=== PATIENT | female | born 1950 | race Caucasian/White ===

== ENCOUNTER → 2016-06-06 | Outpatient (CLI) | payer OTHER ==
[2016-03-03 12:45] VITALS: BP 133/71
[~2016-06-06] MED LIST: ALPR0.254 PO; AMLO10TA2 PO; AMOX500C PO; ASPI-482 PO; CANA1TAB4 PO; CARV25TA2 PO; DOCU100C5 PO; DULO60CA6 PO; INSU100V8 SQ; INSU300I SQ; LEVO200T5 PO; LIRA0.6P SQ; LISD70CA3 PO; LISI40TA PO; LORA10TA3 PO; METO10TA PO; OMEP40CA5 PO; OXYC15TA PO; PRAV40TA2 PO; PRED-220 PO; SPIR1TAB3 PO; VIT1TABL34 PO; ZOLP5TAB PO
--- NOTE | 2016-06-06 17:11 | KCIC ---
Bilateral digital screening mammograms with CAD: HISTORY COMPARISON Comparison is made to previous studies dated 06/06/2015 and 03/30/2014. FINDINGS Breast density category B. The skin and nipples show no abnormalities. No abnormal lymph nodes are seen in the axilla. The breast parenchyma shows scattered fibroglandular density. There continues be a small nodular density in the upper outer quadrant of the left breast which has not changed. There are no new dominant masses, suspicious calcifications or architectural distortions. Benign appearing calcifications are present IMPRESSION No evidence of malignancy. Recommend routine annual mammographic screening. This study was interpreted with the benefit of Computerized Aided Detection (CAD). Mammography is not 100% sensitive in detecting breast cancer. Therefore, a self breast exam and a clinical breast exam are very important. A negative mammogram does not negate a clinically suspicious finding and should not result in a delay in biopsying a clinically suspicious abnormality. BI-RADS category 2. Benign. This patient's information has been entered into a reminder system for the patient to be notified with the results of this examination and a target date for her next mammograms. Electronically signed by: Rosmery Lopes MD (Jun 06, 2016 17:10:02)
== END | disposition home or self-care (01) ==
LOC: KCIC MAMMO 15:05
PROVIDERS: ATTEND Family Medicine
DX: Z12.31 Encounter for screening mammogram for malignant neoplasm of breast (principal)
CPT/HCPCS: G0202; 77067

== ENCOUNTER → 2016-07-11 | Outpatient (CLI) | payer OTHER ==
[2016-03-03 12:45] VITALS: BP 133/71
--- NOTE | 2016-07-11 13:05 | RAD ---
Limited bone scan, 07/11/2016: History: Knee pain Images of both knees and lower legs were obtained following IV injection of 25 mCi of technetium 99m MDP. No previous bone scan is available for comparison purposes. The following findings are delineated: 1. A photon deficient area is present at the left knee compatible with the presence of a knee prosthesis. There is increased activity along the margins of the tibial component and to a lesser degree the femoral component of the knee prosthesis. The abnormal activity appears to be greatest at the tip of the tibial component of the prosthesis. This raises the possibility of loosening or infection. Radiographic correlation is suggested. 2. There is moderately increased activity medially at the right knee joint, likely on an arthritic basis. 3. There is moderately increased activity at the right ankle and to a greater degree at the right midfoot level. These findings may be on a traumatic or arthritic basis. Radiographic correlation is suggested. 4. There is minimally increased activity at the left little toe level which may be traumatic or arthritic in nature.
== END | disposition home or self-care (01) ==
LOC: NM 07:07
PROVIDERS: ATTEND Family Medicine
DX: R93.7 Abnormal findings on diagnostic imaging of other parts of musculoskeletal system (principal); I10 Essential (primary) hypertension; Z79.4 Long term (current) use of insulin; Z79.84 Long term (current) use of oral hypoglycemic drugs
CPT/HCPCS: 78300; 96374; A9503

== ENCOUNTER → 2017-01-02 | Outpatient (CLI) | payer OTHER ==
[2016-03-03 12:45] VITALS: BP 133/71
[~2017-01-02] MED LIST changes: +DOCU100C28 PO; -DOCU100C5 PO; -LISD70CA3 PO; +LISD70CA5 PO
--- NOTE | 2017-01-02 16:18 | KCIC ---
2 view study of the left femur HISTORY: Worsening left proximal femur pain. COMPARISON: None available. 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 Alignment is normal. No loosening or radiolucency is evident. Old appearing fracture of the mid pole of the patella is seen with inferior displacement of the inferior fracture fragment. No acute-appearing fracture is evident. No osteolytic process is evident. Generalized osteopenia is seen. Left hip joint is unremarkable. IMPRESSION: No acute osseous abnormality is seen. Electronically signed by: Hiram Cruz MD (01/02/2017 4:15 PM) [id number]
== END | disposition home or self-care (01) ==
LOC: KCIC 15:30
PROVIDERS: ATTEND Family Medicine
DX: M79.652 Pain in left thigh (principal)
CPT/HCPCS: 73552

== ENCOUNTER → 2017-06-18 | Outpatient (CLI) | payer OTHER | END | disposition home or self-care (01) | LOC: KCIC MRI 17:03 | DX: M48.061 Spinal stenosis, lumbar region without neurogenic claudication (principal); M51.36 Other intervertebral disc degeneration, lumbar region | CPT/HCPCS: 72148 ==

== ENCOUNTER → 2017-07-09 | Outpatient (CLI) | payer OTHER | END | disposition home or self-care (01) | LOC: PNCL 14:44 | DX: M50.10 Cervical disc disorder with radiculopathy, unspecified cervical region (principal); M51.16 Intervertebral disc disorders with radiculopathy, lumbar region; M70.61 Trochanteric bursitis, right hip | CPT/HCPCS: G0463 ==

== ENCOUNTER → 2017-07-10 | Outpatient (CLI) | payer OTHER | END | disposition home or self-care (01) | LOC: KCIC MAMMO 14:38 | DX: Z12.31 Encounter for screening mammogram for malignant neoplasm of breast (principal); I10 Essential (primary) hypertension; E11.9 Type 2 diabetes mellitus without complications | CPT/HCPCS: 77063; 77067 ==

== ENCOUNTER → 2017-07-23 | Outpatient (CLI) | payer OTHER ==
[~2017-07-23] MED LIST changes: -ALPR0.254 PO; -AMLO10TA2 PO; -AMOX500C PO; -ASPI-482 PO; +BUPIVACAINE MPF 0.25% 10 ML VIAL.; -CANA1TAB4 PO; -CARV25TA2 PO; -DOCU100C28 PO; -DULO60CA6 PO; -INSU100V8 SQ; -INSU300I SQ; +IOHEXOL 180 MG/ML 10 ML VIAL.; -LEVO200T5 PO; -LIRA0.6P SQ; -LISD70CA5 PO; -LISI40TA PO; -LORA10TA3 PO; -METO10TA PO; -OMEP40CA5 PO; -OXYC15TA PO; -PRAV40TA2 PO; -PRED-220 PO; -SPIR1TAB3 PO; -VIT1TABL34 PO; -ZOLP5TAB PO; +methylPREDNISolone ACETATE 80 MG/ML VIAL.
== END | disposition home or self-care (01) ==
LOC: PNCL 14:27
DX: M51.16 Intervertebral disc disorders with radiculopathy, lumbar region (principal); M96.1 Postlaminectomy syndrome, not elsewhere classified; M70.61 Trochanteric bursitis, right hip; M50.10 Cervical disc disorder with radiculopathy, unspecified cervical region; I10 Essential (primary) hypertension; E11.9 Type 2 diabetes mellitus without complications; F41.9 Anxiety disorder, unspecified; F32.9 Major depressive disorder, single episode, unspecified; J45.909 Unspecified asthma, uncomplicated; Z98.49 Cataract extraction status, unspecified eye; Z98.890 Other specified postprocedural states; Z90.710 Acquired absence of both cervix and uterus
CPT/HCPCS: 64483; J1040; J3490; Q9965

== ENCOUNTER → 2017-08-06 | Outpatient (CLI) | payer OTHER | END | disposition home or self-care (01) | LOC: PNCL 14:47 | DX: M51.16 Intervertebral disc disorders with radiculopathy, lumbar region (principal); M50.30 Other cervical disc degeneration, unspecified cervical region; M96.1 Postlaminectomy syndrome, not elsewhere classified | CPT/HCPCS: 99212 ==

== ENCOUNTER → 2017-08-25 | Outpatient (CLI) | payer OTHER ==
[~2017-08-25] MED LIST changes: -BUPIVACAINE MPF 0.25% 10 ML VIAL.; +LIDOCAINE 1% PF 2 ML VIAL.; +methylPREDNISolone ACETATE 40 MG/ML VIAL.
== END | disposition home or self-care (01) ==
LOC: PNCL 14:45
DX: M51.16 Intervertebral disc disorders with radiculopathy, lumbar region (principal); M96.1 Postlaminectomy syndrome, not elsewhere classified; M50.10 Cervical disc disorder with radiculopathy, unspecified cervical region; I10 Essential (primary) hypertension; J45.909 Unspecified asthma, uncomplicated; Z90.710 Acquired absence of both cervix and uterus; Z98.890 Other specified postprocedural states; E11.9 Type 2 diabetes mellitus without complications; F41.9 Anxiety disorder, unspecified; F32.9 Major depressive disorder, single episode, unspecified; Z98.49 Cataract extraction status, unspecified eye; Z96.1 Presence of intraocular lens
CPT/HCPCS: 62323; J1030; J1040; Q9965

== ENCOUNTER → 2018-07-23 | Outpatient (CLI) | payer OTHER ==
[2016-03-03 12:45] VITALS: BP 133/71
[~2018-07-23] MED LIST changes: +ALPR0.254 PO; +AMLO10TA8 PO; +AMOX500C PO; +ASPI-482 PO; +CANA1TAB4 PO; +CARV25TA2 PO; +DOCU100C28 PO; +DULO60CA6 PO; +INSU100I32 SQ; +INSU100V8 SQ; +INSU300I SQ; -IOHEXOL 180 MG/ML 10 ML VIAL.; +LEVO200T5 PO; -LIDOCAINE 1% PF 2 ML VIAL.; +LIRA0.6P SQ; +LISD70CA5 PO; +LISI-130 PO; +LORA10TA3 PO; +METO10TA PO; +OMEP40CA5 PO; +OXYC15TA PO; +PRAV40TA2 PO; +PRED-220 PO; +SPIR1TAB3 PO; +VIT1TABL34 PO; +ZOLP5TAB PO; +antiviral; -methylPREDNISolone ACETATE 40 MG/ML VIAL.; -methylPREDNISolone ACETATE 80 MG/ML VIAL.
--- NOTE | 2018-07-23 16:32 | KCIC ---
Bilateral digital screening mammograms with 3-D tomosynthesis: Reason for examination: Routine screening. Comparison is made to previous studies dated 07/10/2017 and 06/06/2016. Bilateral mammograms in CC and oblique projections were obtained with 2-D imaging and 3-D tomosynthesis imaging on a Siemens Inspiration unit and reviewed on the workstation. Interpretation was made with the benefit of CAD. The skin and nipples show no abnormalities. No abnormal axillary lymph nodes are seen. The breast parenchyma shows scattered fatty and fibroglandular density. (Breast density: Category B.) There continues to be a small circumscribed nodule at the 2:00 B position of the left breast which is stable. There are no new dominant masses, suspicious calcifications or architectural distortion. Impression: No evidence of malignancy. Recommend routine screening. BI-RAD Category 2: Benign. "Our facility is accredited by the [employer] Mammography Program." This patient's information has been entered into a reminder system for the patient to be notified with the results of her examination and a target date for the next mammogram. Electronically signed by: Nohelia Lopes MD (07/23/2018 4:30 PM) [id number]
== END | disposition home or self-care (01) ==
LOC: KCIC MAMMO 13:36
PROVIDERS: ATTEND Family Medicine
DX: Z12.31 Encounter for screening mammogram for malignant neoplasm of breast (principal); N63.21 Unspecified lump in the left breast, upper outer quadrant
CPT/HCPCS: 77063; 77067

== ENCOUNTER → 2019-09-21 | Outpatient (CLI) | payer MEDICARE, OTHER ==
[2016-03-03 12:45] VITALS: BP 133/71
[~2019-09-21] MED LIST changes: +OMEP40CA45 PO; -OMEP40CA5 PO; -OXYC15TA PO; +OXYC15TA3 PO
--- NOTE | 2019-09-21 16:51 | KCIC ---
Bilateral digital screening mammograms with 3-D tomosynthesis: Reason for examination: Routine screening. Comparison is made to previous studies dated back to 03/30/2014. Bilateral mammograms in CC and oblique projections were obtained with 2-D imaging and 3-D tomosynthesis imaging on a Siemens Inspiration unit and reviewed on the workstation. Interpretation was made with the benefit of CAD. The skin and nipples show no abnormalities. No abnormal axillary lymph nodes are seen. The breast parenchyma shows scattered fatty and fibroglandular density. (Breast density: Category B.) There continues to be a small circumscribed nodule at the 2:00 B position of the left breast which is stable. There are no new dominant masses, suspicious calcifications or architectural distortion. Impression: No evidence of malignancy. Recommend routine screening. BI-RAD Category 2: Benign. "Our facility is accredited by the [employer] Mammography Program." This patient's information has been entered into a reminder system for the patient to be notified with the results of her examination and a target date for the next mammogram. Electronically signed by: Nohelia Lopes MD (09/21/2019 4:48 PM) [id number]
== END | disposition home or self-care (01) ==
LOC: KCIC MAMMO 13:59
PROVIDERS: ATTEND Obstetrics & Gynecology
DX: Z12.31 Encounter for screening mammogram for malignant neoplasm of breast (principal); N64.89 Other specified disorders of breast
CPT/HCPCS: 77063; 77067

== ENCOUNTER → 2020-11-23 | Outpatient (CLI) | payer MEDICARE, OTHER ==
[2016-03-03 12:45] VITALS: BP 133/71
[~2020-11-23] MED LIST changes: +AMLO-187 PO; -AMLO10TA8 PO; -OMEP40CA45 PO; +OMEP40CA7 PO
--- NOTE | 2020-11-23 17:41 | KCIC ---
Bilateral digital screening mammograms with digital breast tomosynthesis Reason for examination: Routine screening. Comparison is made to previous study dated Interpretation was made with the benefit of CAD. Findings: Breast density category B. There are scattered areas of fibroglandular density There are no suspicious masses, malignant appearing calcifications or architectural distortion. There is an unchanged small oval circumscribed mass in the 1:00 position of the left breast. Impression: No evidence of malignancy. ASSESSMENT: BI-RADS 2. Benign findings. Recommendations: Routine screening mammograms. This patient's information has been entered into a reminder system for the patient to be notified wit h the results of her examination and a target date for the next mammogram. Electronically signed by: Namrata Kim MD (11/23/2020 5:39 PM) [id number]
== END ==
LOC: KCIC MAMMO 13:09
PROVIDERS: ATTEND Family Medicine
DX: Z12.31 Encounter for screening mammogram for malignant neoplasm of breast (principal)
CPT/HCPCS: 77063; 77067